=== PATIENT | male | born 1950 | race Two or more races ===

== ENCOUNTER 2024-10-29 11:15 | Day surgery (SDC) | payer MEDICARE, MEDICAID, SELFPAY ==
--- NOTE | 2024-10-27 06:44 | EKG_ITS ---
[facility] Test Date: 2024-10-27 Pat Name: EDITH COLLADO Department: Room: - Gender: Male Project/Production Manager Imaging: WOODY : 1950 Requested By: Hi Watson Order Number: [id number] Reading MD: Hi Watson Measurements Intervals [place] Rate: 81 P: 53 MD: 153 QRS: -28 QRSD: 108 T: 78 QT: 357 QTc: 416 Interpretive Statements SINUS RHYTHM BORDERLINE LEFT AXIS DEVIATION [QRS AXIS < -20] MODERATE ST DEPRESSION [0.05+ mV ST DEPRESSION] No previous ECG available for comparison /[id number]
[2024-10-27 08:44] VITALS: BMI 28.4
[2024-10-27 09:55] LABS: Basophils # (Auto) 0.1 Thou/mm3 (0.0-0.2); Basophils % (Auto) 1 % (0-2.5); Eosinophils # (Auto) 0.1 Thou/mm3 (0.0-0.5); Eosinophils % (Auto) 1 % (0-10); Hematocrit 37.3 % (41.0-53.0); Hemoglobin 12.6 g/dL (13.5-16.0); Immature Granulocytes Auto 0.03 Thou/mm3 (0.00-0.00); Lymphocytes # (Auto) 2.3 Thou/mm3 (1.0-4.8); Lymphocytes % (Auto) 28 % (10-50); Mean Corpuscular HGB Conc 33.8 g/dl (31.0-37.0); Mean Corpuscular Hemoglobin 32.7 pg (25.0-35.0); Mean Corpuscular Volume 97 fL (80-100); Monocytes # (Auto) 0.7 Thou/mm3 (0.0-0.8); Monocytes % (Auto) 9 % (0-12); Neutrophils # (Auto) 5.2 Thou/mm3 (1.8-7.7); Neutrophils % (Auto) 61 % (37-80); Nucleated Red Blood Cell # 0.00 Thou/mm3 (0.00-0.00); Nucleated Red Blood Cell % 0 /100 WBC (0); Platelet Count 233 Thou/mm3 (140-440); RDW Standard Deviation 48.7 fL (35.1-43.9); Red Blood Count 3.85 Miln/mm3 (4.50-5.90); White Blood Count 8.4 Thou/mm3 (3.8-10.6)
[2024-10-27 10:04] LABS: INR 1.0 (0.9-1.3); Partial Thromboplastin Time 25.0 Seconds (22.0-36.0); Prothrombin Time 11.4 Seconds (9.0-12.2)
[2024-10-27 10:06] LABS: Alanine Aminotransferase 15 U/L (10-49); Albumin, Serum 4.3 gm/dL (3.4-4.8); Albumin/Globulin Ratio 1.3 (1.2-2.2); Alkaline Phosphatase 105 U/L (46-116); Anion Gap 11 (7-16); Aspartate Amino Transferase 23 U/L (0-34); BUN/Creatinine Ratio 5 Ratio (12-20); Bilirubin,Total 0.3 mg/dL (0.3-1.2); Blood Urea Nitrogen 24 mg/dL (9-23); Calcium 10.3 mg/dL (8.3-10.6); Calcium (Corrected) 10.3 mg/dL (8.5-10.1); Carbon Dioxide 25.7 mMol/L (20.0-31.0); Chloride 105 mMol/L (98-107); Creatinine (Component) 4.8 mg/dL (0.6-1.3); Estimated Creatinine Clearance 13.4 mL/min (>60); Globulin 3.4 gm/dL (2.3-3.5); Glucose 152 mg/dL (74-106); Osmolality,Calculated 290 (275-295); Potassium 4.4 mMol/L (3.4-5.1); Sodium 142 mMol/L (136-145); Total Protein 7.7 gm/dL (5.7-8.2); eGFR 12 See Note
--- NOTE | 2024-10-28 13:12 | SUR.PREOP ---
Cardiac records requested from Dr Navarro office, [place] stated their system still down and they don't know when it will be ready.
--- NOTE | 2024-10-28 14:07 | SUR.PREOP ---
Pt notified to come in at 0930 tomorrow for surgery.
--- NOTE | 2024-10-28 14:32 | SUR.PREOP ---
Cardiac history reviewed with Dr Bailey. NAVA from Dr Navarro confirmed their system still down, unable to send records.
[2024-10-29] VITALS (7 sets, daily range): BP systolic 141–164; BP diastolic 75–83; PULSE 65–86; RESP 16–20; TEMP 36.3–36.8; O2SAT 95–100; BMI 29.3
[2024-10-29 12:13] LABS: Potassium 4.2 mMol/L (3.4-5.1)
--- NOTE | 2024-10-29 15:05 | SUR.PHASEI ---
pt received from OR in recovery bay 5. pt asleep but responds to voice, breathing unlabored on oxymask 8l. v/s stable. pt dressing to right arm dermabond x1 cdi. report received from Kelvin Garnica and Dr. Davis.
--- NOTE | 2024-10-29 15:05 | PD.SUROPNT ---
Date of Procedure 10/29/24 Pre Op Diagnosis End-stage renal disease and the need for permanent dialysis access Post Op Diagnosis Same as pre-op diagnosis Procedure Creation of arteriovenous fistula between the brachial artery and cephalic vein right upper extremity Findings There was excellent flow in the fistula Procedure Description With the patient supine under adequate anesthesia the right upper extremity sterilely prepped and draped. A timeout was performed. A tourniquet was placed on the upper arm and the arm was evaluated with a B-mode ultrasound. The cephalic vein in the forearm courses to the posterior aspect of the arm as it goes down towards the hand and then looking at what it would take to mobilize the vein and then find the radial artery in the midportion of the arm there would be very little cannulation length for the vein. He was decided then to proceed with a brachial cephalic AV fistula. A slightly oblique incision was then made on the volar aspect of the forearm and the subcutaneous tissues were dissected with electrocautery. The cubital vein was dissected free from surrounding tissues ligated distally and mobilized. The gave branches to both the cephalic and the basilic system. The dissection was then deepened through the bicipital aponeurosis to expose the brachial artery. The brachial artery was then crossclamped proximally distally lustral arteriotomy is made and stay sutures were placed. The vein was cut to size and sewn to the artery with combination of interrupted and running 7-0 Prolene sutures. Before completion the artery was 4 flushed and back flushed, the vein was back flushed anastomotic area was irrigated with heparin saline. Final sutures were placed then flow was established. There is strong palpable thrill in the cephalic vein. The branch to the basilic vein was ligated to encourage development of the cephalic vein. After hemostasis was obtained the wound was closed in layers with 3-0 Vicryl the subcutaneous tissues and 4 Monocryl subcuticular skin closure. A Dermabond dressing was applied. Patient woke up from anesthesia and was then moved to recovery in stable condition Anesthesia other (Laryngeal mask anesthesia) Pathology / specimen None Estimated Blood Loss 30 Condition Stable Disposition PACU Surgeon Hi Knapp MD Surgical Staff Operation Date: 10/29/24 14:55 Case Staff Anesthesiologist: Justin Davis RN First Assistant: Shana Mujica
--- NOTE | 2024-10-29 15:20 | SUR.PHASEI ---
pt able to tolerate oral fluids without difficulty swallowing or nausea/vomiting.
--- NOTE | 2024-10-29 16:00 | SUR.PHASEII ---
pt awake and alert, breathing unlabored on room air. v/s stable. pt dressing to right arm dermabond cdi. pt able to ambulate to wheelchair with steady gait. d/c instructions given with sister Becky in room, all questions answered. pt d/c via wheelchair with all belongings.
== END 2024-10-29 16:00 | disposition home or self-care (01) ==
PROVIDERS: Anesthesiology; PCP Physician Assistant; Referring Provider Surgery Vascular Surgery; Visit Provider Surgery Vascular Surgery
PROC: (CPT 36825; principal; 2024-10-29 14:55)
DX: N18.6 End stage renal disease (principal); Z01.810 Encounter for preprocedural cardiovascular examination
CPT/HCPCS: 36821; 36415; 80053; 84132; 85025; 85610; 85730; 93005; A4649; J0131; J0690; J1100; J1644; J2250; J2405; J2440; J2704; J3010; J3490; J0665